=== PATIENT | female | born 1980 | race Caucasian/White ===

== ENCOUNTER → 2016-07-22 | Outpatient (CLI) | payer OTHER ==
[2014-10-14 12:24] VITALS: BP 117/78
[~2016-07-22] MED LIST: ALBU8.5H6 IH; DOCU100C5 PO; FLUT100P MC; FLUT50DI IH; HYDR200T PO; LACT10SO26 PO; LORA0.5T PO; MULT-18 PO; OMEP20CA9 PO; OXYC5TAB PO; POLY17PO5 PO; SENN8.6T67 PO; TRIA15CR3 TP; WARF6TAB PO
--- NOTE | 2016-07-22 16:03 | RAD ---
Renal ultrasound, 07/22/2016: History: Left renal cyst The right kidney measures 9.9 cm in length while the left kidney measures 8.4 cm. There is a 1.3 cm hypoechoic lesion in the upper pole of the left kidney. There is posterior acoustic enhancement. The low level internal echoes are probably artifactual. This is most likely a cyst. On the study of 05/16/2014 there was a 9 mm hypoechoic structure in this region. No other renal mass is seen. There is no evidence of hydronephrosis. There is mild bilateral renal cortical scarring. The central portions of both kidneys are unusually echogenic. This was also evident on the previous study. IMPRESSION: 1. Probable small cyst in the left kidney which has increased in size since 05/16/2014. Given the patient's history of renal malignancy, CT or MR scanning is suggested for optimal delineation. 2. Increased renal echogenicity in the medullary regions which can be due to a variety of causes including medullary sponge kidney or nephrocalcinosis due to other systemic causes.
== END | disposition home or self-care (01) ==
LOC: US 13:37
PROVIDERS: ATTEND Urology
DX: N28.1 Cyst of kidney, acquired (principal); Q61.5 Medullary cystic kidney; Z85.528 Personal history of other malignant neoplasm of kidney
CPT/HCPCS: 76770